=== PATIENT | female | born 1980 | race Caucasian/White ===

== ENCOUNTER → 2018-04-27 | Outpatient (CLI) | payer MEDICAID | END | disposition home or self-care (01) | LOC: LABWHC1 11:45 | PROVIDERS: ATTEND Otolaryngology | DX: J30.89 Other allergic rhinitis (principal) | CPT/HCPCS: 36415 ==

== ENCOUNTER → 2018-06-02 | Outpatient (CLI) | payer MEDICAID ==
--- NOTE | 2018-06-02 08:27 | MR ---
EXAMINATION TYPE: MR elbow RT wo con DATE OF EXAM: 06/02/2018 COMPARISON: NONE HISTORY: 38-year-old female Pain in right elbow, lateral epicondylitis TECHNIQUE: Multiplanar, multisequence images of the right elbow were obtained without IV contrast. FINDINGS: Distal biceps tendon is intact. The common extensor tendon origin is heterogeneous with a proximal intrasubstance tear measuring 5 x 4 x 5 mm and a second slightly more distal intrasubstance tear measuring 5 mm. No retracted tear is s een. The underlying lateral collateral ligament is intact. The ulnar collateral ligament is intact. The common flexor origin pronator mass is intact. The distal triceps tendon is intact. The ulnar nerve has a normal appearance within the cubital tunnel. The brachial artery and vein and adjacent median nerve are satisfactory. No focal cartilage defect. Prominent pseudodefect along the posterior capitellum. No bone marrow edema or hypertrophied synovium. Small joint effusion likely within physiologic range. The surrounding subcutaneous soft tissues are unremarkable. IMPRESSION: Moderate to severe common extensor tendinosis with 2 prominent intrasubstance tears measuring 5 mm ea ch. No retracted tear. The underlying LCL appears intact.
== END | disposition home or self-care (01) ==
LOC: RADMRIMAIN 06:38
PROVIDERS: ATTEND Orthopaedic Surgery
DX: S56.512A Strain of other extensor muscle, fascia and tendon at forearm level, left arm, initial encounter (principal)

== ENCOUNTER → 2019-09-01 | Outpatient (CLI) | payer MEDICAID ==
--- NOTE | 2019-09-01 11:10 | MM ---
Reason for exam: screening (asymptomatic). Baseline mammogram. History: Taking hormonal contraceptives beginning at age 20. Physical Findings: Nurse did not find any significant physical abnormalities on exam. MG 3D Diag Mammo W/Cad GAVIN Bilateral CC and MLO view(s) were taken. The breast tissue is heterogeneously dense. This may lower the sensitivity of mammography. No suspicious abnormality. These results were verbally communicated with the patient and result sheet given to the patient on 09/01/19. ASSESSMENT: Negative, BI-RAD 1 RECOMMENDATION: Routine screening mammogram of both breasts in 1 year.
== END | disposition home or self-care (01) ==
LOC: RADMAMWWP 09:33
PROVIDERS: ATTEND Obstetrics & Gynecology
DX: N64.4 Mastodynia (principal)
CPT/HCPCS: 77062; 77066

== ENCOUNTER → 2019-09-21 | Outpatient (CLI) | payer MEDICAID ==
[2019-09-21 16:43] LABS: HCG,Quantitative Serum <2.0 mIU/mL
== END | disposition home or self-care (01) ==
LOC: LABWHC1 12:08
PROVIDERS: ATTEND Obstetrics & Gynecology
DX: Z13.29 Encounter for screening for other suspected endocrine disorder (principal); N39.0 Urinary tract infection, site not specified; N93.8 Other specified abnormal uterine and vaginal bleeding; R82.90 Unspecified abnormal findings in urine; R35.0 Frequency of micturition
CPT/HCPCS: 36415; 84439; 84443; 84480; 84702

== ENCOUNTER → 2019-09-29 | Outpatient (CLI) | payer MEDICAID ==
--- NOTE | 2019-09-29 14:02 | US ---
EXAMINATION TYPE: US transvaginal DATE OF EXAM: 09/29/2019 COMPARISON: US 07/02/2012 CLINICAL HISTORY: N93.8 DUB. TECHNIQUE: Transvaginal sonographic images of the pelvis were acquired. Date of LMP: Unsure EXAM MEASUREMENTS: Uterus: 7.9 x 3.9 x 4.0 cm Endometrial Stripe: 0.5 cm Right Ovary: 2.2 x 1.5 x 2.7 cm Left Ovary: 2.4 x 1.7 x 2.2 cm 1. Uterus: Anteverted. Nabothian cysts visualized. Heterogeneous. Multiple hypoechoic areas visual ized, largest measuring 0.8 x 0.9 x 0.9 cm, possible fibroids 2. Endometrium: wnl 3. Right Ovary: Multiple follicles visualized, the most dominant follicle measuring 1.4 x 0.8 x 1.1 cm 4. Left Ovary: wnl 5. Bilateral Adnexa: wnl 6. Posterior cul-de-sac: wnl IMPRESSION: 1. Heterogenous uterus with multiple probable leiomyomas the largest and most circumscribed in the an terior mid body of the uterus appearing intramural. 2. No abnormal endometrial thickening. 3. Follicular changes of the right ovary, likely physiologic.
== END | disposition home or self-care (01) ==
LOC: RADUSWWP 13:19
PROVIDERS: ATTEND Obstetrics & Gynecology
DX: N93.8 Other specified abnormal uterine and vaginal bleeding (principal)
CPT/HCPCS: 76830

== ENCOUNTER → 2019-11-15 | Outpatient (CLI) | payer OTHER ==
--- NOTE | 2019-11-15 11:17 | XR ---
EXAMINATION TYPE: XR Hip Complete LT DATE OF EXAM: 11/15/2019 COMPARISON: None HISTORY: S 39.012A, pain TECHNIQUE: 2 view left hip FINDINGS: Femoral head articulates with the acetabulum. Joint spaces preserved. No acute fracture or dislocation is evident. There is an ill-defined area of increased sclerosis along the lateral proximal metaphysis. Bone scan is recommended for additional evaluation IMPRESSION: 1. No acute fractures. 2. Ill-defined area of sclerosis along the lateral metaphysis proximal left femur. Bone scan is recom mended for additional evaluation.
--- NOTE | 2019-11-15 11:21 | XR ---
EXAMINATION TYPE: XR lumbar spine 2 or 3V DATE OF EXAM: 11/15/2019 COMPARISON: None HISTORY: Low back pain TECHNIQUE: Three-view lumbar spine FINDINGS: There 5 lumbar-type vertebral bodies. Pedicles are intact. Some mild disc space narrowing i s present L4-5. Vertebral body heights are preserved. There is attempted sacralization of L5 on the l eft. IMPRESSION: 1. Degenerative disc change L4-5.
== END | disposition home or self-care (01) ==
LOC: RADXRMAIN 10:42
PROVIDERS: ATTEND Emergency Medicine
DX: M47.816 Spondylosis without myelopathy or radiculopathy, lumbar region (principal); M89.8X5 Other specified disorders of bone, thigh
CPT/HCPCS: 72100; 73502

== ENCOUNTER → 2020-02-09 | Outpatient (CLI) | payer MEDICAID ==
--- NOTE | 2020-02-09 11:36 | MR ---
MR pelvis without contrast HISTORY: Left hip pain Multiplanar multisequence imaging through the pelvis with small [id number] images obtained to the left hip. Correlation to plain film 11/15/2019 There is increased signal along the acetabular labrum consistent with tear. Gluteus medius tendon zelda ws some increased signal near its insertion consistent with tendinosis or partial tear. There is no s izable hip joint effusion. Sclerotic focus seen on plain film shows low signal on T1 and T2-weighted sequences, no marrow edema suggestive of bone island. There is no inguinal adenopathy. The uterus shows fibroids. Cystic focus is associated with the left ovary measuring 16 mm. There is n o ascites. Sacroiliac joints show normal signal. Degenerative disc changes are noted in the lower lum bar spine. Urinary bladder is unremarkable. IMPRESSION: Labral tear is suspected. Probable tendinosis or strain, partial tear of the gluteus medi us tendon near its insertion. Fibroid uterus. Degenerative disc disease.
== END | disposition home or self-care (01) ==
LOC: RADMRIMAIN 09:32
PROVIDERS: ATTEND Orthopaedic Surgery
DX: M51.36 Other intervertebral disc degeneration, lumbar region (principal); D25.9 Leiomyoma of uterus, unspecified
CPT/HCPCS: 72195

== ENCOUNTER 2020-09-12 08:18 | Observation (INO) | payer MEDICAID ==
[2020-09-12] MEDS ORDERED: KETOROLAC 15 MG/ML 1 ML VIAL IVP STA ×2 (08:31→11:36)
[2020-09-12] MEDS ORDERED: ONDANSETRON 4 MG/2 ML VIAL IVP STA (08:32)
[2020-09-12] MEDS ORDERED: SODIUM CHLORIDE 0.9% 1,000 ML IV ONE (08:32)
[2020-09-12 08:53] LABS: Basophils # (A) 0.1 k/uL (0-0.2); Basophils % (A) 1 %; Eosinophils # (A) 0.3 k/uL (0-0.7); Eosinophils % (A) 3 %; HCT 42.2 % (34.0-46.0); HGB 14.4 gm/dL (11.4-16.0); Lymphocytes # (A) 2.9 k/uL (1.0-4.8); Lymphocytes % (A) 34 %; MCH 30.4 pg (25.0-35.0); MCHC 34.2 g/dL (31.0-37.0); MCV 89.1 fL (80.0-100.0); Mean Platelet Volume 7.7; Monocytes # (A) 0.4 k/uL (0-1.0); Monocytes % (A) 5 %; Neutrophils # (A) 4.8 k/uL (1.3-7.7); Neutrophils % (A) 56 %; Platelet Count 287 k/uL (150-450); RBC 4.74 m/uL (3.80-5.40); RDW 12.1 % (11.5-15.5); WBC 8.6 k/uL (3.8-10.6)
[2020-09-12 08:54] LABS: Appearance,Urine Clear (Clear); Bacteria,Urine Rare /hpf; Bilirubin,Urine Negative (Negative); Blood,Urine Moderate (Negative); Color,Urine Yellow; Glucose,Urine (UA) Negative (Negative); Ketones,Urine Negative (Negative); Leukocyte Esterase,Urine Small (Negative); Mucus,Urine Occasional /hpf; Nitrite,Urine Negative (Negative); Protein,Urine Trace (Negative); RBC,Urine 7 /hpf (0-5); Specific Gravity,Urine 1.026 (1.001-1.035); Squamous Epithelial Cell,Urine 3 /hpf (0-4); Urobilinogen,Urine <2.0 mg/dL (<2.0); WBC,Urine 2 /hpf (0-5)
[2020-09-12 09:02] LABS: ALT 16 U/L (4-34); AST 23 U/L (14-36); African American GFR (CKD) >90 (>60 ml/min/1.73 sqM); Albumin 4.5 g/dL (3.5-5.0); Alkaline Phosphatase 62 U/L (38-126); Anion Gap 8 mmol/L; Blood Urea Nitrogen 18 mg/dL (7-17); Calcium 10.3 mg/dL (8.4-10.2); Carbon Dioxide 26 mmol/L (22-30); Chloride 105 mmol/L (98-107); Glucose 116 mg/dL (74-99); Non-African American GFR(CKD) 86 (>60 ml/min/1.73 sqM); Potassium 4.1 mmol/L (3.5-5.1); Sodium 139 mmol/L (137-145); Total Bilirubin 0.6 mg/dL (0.2-1.3); Total Protein 7.6 g/dL (6.3-8.2)
--- NOTE | 2020-09-12 09:14 | ED ---
Female Urogenital HPI - General Chief complaint: Urogenital Stated complaint: ABD pain Time Seen by Provider: 09/12/20 08:27 Source: patient Mode of arrival: ambulatory Limitations: no limitations - History of Present Illness Initial comments: 40yo female with history of kidney stones presenting for right flank pain that is radiating toward right side of abdomen/groin. pt states this morning she developed sharp pain in the right mid back that began radiating down side of abdomen. pt sates that it was so severe it caused nausea/vomiting. pt denies fev ers, admits to dysuria last week and was placed on nitrofurtoin. patient denies chest pain, upper abdominal pain. Denies vaginal bleeding, . - Related Data Home Medications Medication Instructions Recorded Confirmed Albuterol Sulfate [Albuterol 2 puff INHALATION RT-Q6H PRN 09/12/20 09/12/20 Sulfate Hfa] Fluticasone/Salmeterol [Advair 1 puff INHALATION RT-BID PRN 09/12/20 09/12/20 250-50 Diskus] Ibuprofen [Motrin Ib] 400 - 800 mg PO Q8H PRN 09/12/20 09/12/20 Yadira Fe 1 tab PO DAILY 09/12/20 09/12/20 Previous Rx's Medication Instructions Recorded Ketorolac [Toradol] 10 mg PO Q8HR PRN 3 Days #9 tab 09/12/20 Ondansetron Odt [Zofran Odt] 4 mg PO Q8HR PRN 4 Days #12 tab 09/12/20 Allergies Allergy/AdvReac Type Severity Reaction Status Date / Time cephalexin monohydrate Allergy Rash/Hives Verified 09/12/20 09:02 [From Keflex] tree nut Allergy Swelling Verified 09/12/20 09:02 Review of Systems ROS Statement: Those systems with pertinent positive or pertinent negative responses have been documented in the HPI. ROS Other: All systems not noted in ROS Statement are negative. Past Medical History Past Medical History: Asthma, No Reported History, Skin Disorder, Thyroid Disorder Additional Past Medical History / Comment(s): exema, kidney stones History of Any Multi-Drug Resistant Organisms: None Reported Past Surgical History: Orthopedic Surgery Additional Past Surgical History / Comment(s): D & C Past Anesthesia/Blood Transfusion Reactions: Postoperative Nausea & Vomiting (PONV) Past Psychological History: No Psychological Hx Reported Smoking Status: Never smoker Past Alcohol Use History: Occasional Past Drug Use History: None Reported - Past Family History Mother Family Medical History: No Reported History General Exam - General Exam Comments Initial Comments: General: The patient is awake and alert, appears very uncomfortable. Eye: +3 mm pupils are equal, round and reactive to light, extra-ocular movements are intact. No nystagmus. There is normal conjunctiva bilaterally. No signs of icterus. Ears, nose, mouth and throat: There are moist mucous membranes and no oral lesions. Neck: The neck is supple, there is no tenderness or JVD. Cardiovascular: There is a regular rate and rhythm. No murmur, rub or gallop is appreciated. Respiratory: Lungs are clear to auscultation, respirations are non-labored, breath sounds are equal. No wheezes, stridor, rales, or rhonchi. Gastrointestinal: Soft, non-distended, non-tender abdomen without masses or organomegaly noted. There is no rebound or guarding present Musculoskeletal: Normal ROM, no tenderness. Strength 5/5. Sensation intact. Radial pulses equal bilaterally 2+. Neurological: A&O x 3. CN II-XII intact grossly, There are no obvious motor or sensory deficits. Coordination appears grossly intact. Speech is normal. Skin: Skin is warm and dry and no rashes or lesions are noted. Psychiatric: Cooperative, appropriate mood & affect, normal judgment. Limitations: no limitations Course Vital Signs 09/12/20 09/12/20 09/12/20 08:22 09:50 10:50 Temperature 97.8 F Pulse Rate 78 69 67 Respiratory 18 18 18 Rate Blood Pressure 131/87 135/78 115/74 O2 Sat by Pulse 100 98 98 Oximetry Medical Decision Making - Medical Decision Making labs stable. hematuria. CT right sided stone 3mm. mild-moderate hydronephrosis. no fevers. pt symptoms remain present rhoughout visit despite treatment. pt will be admitted for pain/nausea management. pt agreeable to admission. Dr. Daugherty accepted reecommended tamulosin. Dr. Stinson agreeable to care plan and admission. - Lab Data Result diagrams: 09/12/20 08:31 09/12/20 08:31 Lab Results 12/30/20 12/30/20 12/30/20 Range/Units 08:31 08:31 08:31 WBC 8.6 (3.8-10.6) k/uL RBC 4.74 (3.80-5.40) m/uL Hgb 14.4 (11.4-16.0) gm/dL Hct 42.2 (34.0-46.0) % MCV 89.1 (80.0-100.0) fL MCH 30.4 (25.0-35.0) pg MCHC 34.2 (31.0-37.0) g/dL RDW 12.1 (11.5-15.5) % Plt Count 287 (150-450) k/uL MPV 7.7 Neutrophils % 56 % Lymphocytes % 34 % Monocytes % 5 % Eosinophils % 3 % Basophils % 1 % Neutrophils # 4.8 (1.3-7.7) k/uL Lymphocytes # 2.9 (1.0-4.8) k/uL Monocytes # 0.4 (0-1.0) k/uL Eosinophils # 0.3 (0-0.7) k/uL Basophils # 0.1 (0-0.2) k/uL Sodium 139 (137-145) mmol/L Potassium 4.1 (3.5-5.1) mmol/L Chloride 105 (98-107) mmol/L Carbon Dioxide 26 (22-30) mmol/L Anion Gap 8 mmol/L BUN 18 H (7-17) mg/dL Creatinine 0.85 (0.52-1.04) mg/dL Est GFR (CKD-EPI)AfAm >90 (>60 ml/min/1.73 sqM) Est GFR (CKD-EPI)NonAf 86 (>60 ml/min/1.73 sqM) Glucose 116 H (74-99) mg/dL Calcium 10.3 H (8.4-10.2) mg/dL Total Bilirubin 0.6 (0.2-1.3) mg/dL AST 23 (14-36) U/L ALT 16 (4-34) U/L Alkaline Phosphatase 62 (38-126) U/L Total Protein 7.6 (6.3-8.2) g/dL Albumin 4.5 (3.5-5.0) g/dL Urine Color Yellow Urine Appearance Clear (Clear) Urine pH 6.0 (5.0-8.0) Ur Specific [place] 1.026 (1.001-1.035) Urine Protein Trace H (Negative) Urine Glucose (UA) Negative (Negative) Urine Ketones Negative (Negative) Urine Blood Moderate H (Negative) Urine Nitrite Negative (Negative) Urine Bilirubin Negative (Negative) Urine Urobilinogen <2.0 (<2.0) mg/dL Ur Leukocyte Esterase Small H (Negative) Urine RBC 7 H (0-5) /hpf Urine WBC 2 (0-5) /hpf Ur Squamous Epith Cells 3 (0-4) /hpf Urine Bacteria Rare H (None) /hpf Urine Mucus Occasional H (None) /hpf Urine HCG, Qual (Not Detectd) 09/12/20 Range/Units 08:31 WBC (3.8-10.6) k/uL RBC (3.80-5.40) m/uL Hgb (11.4-16.0) gm/dL Hct (34.0-46.0) % MCV (80.0-100.0) fL MCH (25.0-35.0) pg MCHC (31.0-37.0) g/dL RDW (11.5-15.5) % Plt Count (150-450) k/uL MPV Neutrophils % % Lymphocytes % % Monocytes % % Eosinophils % % Basophils % % Neutrophils # (1.3-7.7) k/uL Lymphocytes # (1.0-4.8) k/uL Monocytes # (0-1.0) k/uL Eosinophils # (0-0.7) k/uL Basophils # (0-0.2) k/uL Sodium (137-145) mmol/L Potassium (3.5-5.1) mmol/L Chloride (98-107) mmol/L Carbon Dioxide (22-30) mmol/L Anion Gap mmol/L BUN (7-17) mg/dL Creatinine (0.52-1.04) mg/dL Est GFR (CKD-EPI)AfAm (>60 ml/min/1.73 sqM) Est GFR (CKD-EPI)NonAf (>60 ml/min/1.73 sqM) Glucose (74-99) mg/dL Calcium (8.4-10.2) mg/dL Total Bilirubin (0.2-1.3) mg/dL AST (14-36) U/L ALT (4-34) U/L Alkaline Phosphatase (38-126) U/L Total Protein (6.3-8.2) g/dL Albumin (3.5-5.0) g/dL Urine Color Urine Appearance (Clear) Urine pH (5.0-8.0) Ur Specific [place] (1.001-1.035) Urine Protein (Negative) Urine Glucose (UA) (Negative) Urine Ketones (Negative) Urine Blood (Negative) Urine Nitrite (Negative) Urine Bilirubin (Negative) Urine Urobilinogen (<2.0) mg/dL Ur Leukocyte Esterase (Negative) Urine RBC (0-5) /hpf Urine WBC (0-5) /hpf Ur Squamous Epith Cells (0-4) /hpf Urine Bacteria (None) /hpf Urine Mucus (None) /hpf Urine HCG, Qual Not Detected (Not Detectd) Disposition Clinical Impression: Kidney stone, Urolithiasis, Right flank pain, Nausea and vomiting Disposition: HOME SELF-CARE Condition: Good Instructions (If sedation given, give patient instructions): Kidney Stones (ED) Additional Instructions: Please use medication as discussed. Please follow-up with family doctor in the next 2 days, as well as urology in next week. return for fevers, uncontrolled pain or uncontrolled vomiting. Please return to emergency room if the symptoms increase or worsen or for any other concerns. Prescriptions: Ketorolac [Toradol] 10 mg PO Q8HR PRN 3 Days #9 tab PRN Reason: Pain Ondansetron Odt [Zofran Odt] 4 mg PO Q8HR PRN 4 Days #12 tab PRN Reason: Nausea Is patient prescribed a controlled substance at d/c from ED?: No Referrals: Gamal Box DO [Primary Care Provider] - 1-2 days Fred Daugherty MD [STAFF PHYSICIAN] - 1-2 days Time of Disposition: 11:22
--- NOTE | 2020-09-12 09:34 | CT ---
EXAMINATION TYPE: CT abdomen pelvis wo con DATE OF EXAM: 09/12/2020 COMPARISON: None INDICATION: Right flank pain DLP: 859.2 mGycm, Automated exposure control for dose reduction was used. CONTRAST: 0 mL of Isovue 300. Study performed without Oral Contrast TECHNIQUE: Axial images were obtained from above the diaphragm to the pubic rami in the axial plane a t 5 mm thick sections. Reconstructed images are reviewed on the computer in the coronal plane. FINDINGS: Limited CT sections are obtained the lung bases. The lung bases are clear. CT ABDOMEN: Liver: Normal Spleen: Normal Pancreas: Normal Adrenal glands: The adrenal glands are normal. Gallbladder: Normal Kidneys: No masses are evident. No hydronephrosis is present. No cysts are present. There is a 0.3 cm distal right ureteral stone with moderate right hydronephrosis and hydroureter. This is just abov e the ureterovesical junction. Aorta: Normal Inferior vena cava: Normal. CT PELVIS: Loops of bowel within the abdomen and pelvis are normal. The study is without oral contrast limit ing bowel evaluation. Appendix: Normal as visualized. Urinary bladder: Decompressed with limited evaluation Genitourinary structures: Uterus and adnexa appear within normal limits. Osseous structures: No suspicious lytic or sclerotic lesions. IMPRESSIONS: 1. 0.3 cm distal right ureteral stone with moderate right hydronephrosis and hydroureter.
[2020-09-12] MEDS ORDERED: METOCLOPRAMIDE 5 MG/ML 2 ML VIAL IVP STA (09:49)
[2020-09-12] MEDS ORDERED: HYDROmorphone 0.5 MG/0.5 ML SYRINGE IVP STA ×2 (09:49→11:36)
[2020-09-12] MEDS: ONDANSETRON 4 MG/2 ML VIAL IVP STA (11:59)
[2020-09-12] MEDS ORDERED: NALOXONE 0.4 MG/ML 1 ML VIAL IV PRN (12:01)
[2020-09-12] MEDS ORDERED: TAMSULOSIN 0.4 MG CAP.ER.24H PO STA (12:02)
[2020-09-12] MEDS: SODIUM CHLORIDE 0.9% 1,000 ML IV SCH ×2 (12:43→20:38)
[2020-09-12] MEDS: HYDROmorphone 0.5 MG/0.5 ML SYRINGE IVP PRN ×3 (15:50→23:14)
[2020-09-12] MEDS: ONDANSETRON 4 MG/2 ML VIAL IVP PRN (18:29)
[2020-09-12] MEDS: KETOROLAC 15 MG/ML 1 ML VIAL IVP PRN (18:30)
--- NOTE | 2020-09-12 22:24 | P.GSHP ---
History of Present Illness H&P Date: 09/12/20 Chief Complaint: Right renal colic The patient is a 40-year-old white female with one prior episode of urolithiasis, a calculus she past 10 years ago. For the past week, she has experienced urinary symptoms of dysuria and urgency. She presumed she had a UTI, and was treated with Macrobid. Her symptoms improved. However, she has now developed severe right flank pain, associated with nausea and vomiting. She presented to the emergency room. A computed tomography scan showed evidence of right hydroureteronephrosis due to a 3 mm calculus just proximal to the ureterovesical junction. - Constitutional Constitutional: Denies chills, Denies fever - Gastrointestinal Gastrointestinal: Reports nausea, Reports vomiting - Genitourinary (Female) Genitourinary: Reports dysuria, Reports flank pain, Reports kidney stones, Denies hematuria Past Medical History Past Medical History: Asthma, Skin Disorder, Thyroid Disorder Additional Past Medical History / Comment(s): eczema, kidney stones History of Any Multi-Drug Resistant Organisms: None Reported Past Surgical History: Orthopedic Surgery Additional Past Surgical History / Comment(s): D & C. Past Anesthesia/Blood Transfusion Reactions: Postoperative Nausea & Vomiting (PONV) Past Psychological History: No Psychological Hx Reported Smoking Status: Never smoker Past Alcohol Use History: Occasional Past Drug Use History: None Reported - Past Family History Father Family Medical History: Coronary Artery Disease (CAD) Additional Family Medical History / Comment(s): kidney stones, pace maker. Mother Family Medical History: No Reported History Additional Family Medical History / Comment(s): UTIs. Medications and Allergies Home Medications Medication Instructions Recorded Confirmed Type Albuterol Sulfate [Albuterol 2 puff INHALATION RT-Q6H PRN 09/12/20 09/12/20 History Sulfate Hfa] Fluticasone/Salmeterol [Advair 1 puff INHALATION RT-BID PRN 09/12/20 09/12/20 History 250-50 Diskus] Ibuprofen [Motrin Ib] 400 - 800 mg PO Q8H PRN 09/12/20 09/12/20 History Ketorolac [Toradol] 10 mg PO Q8HR PRN 3 Days #9 tab 09/12/20 Rx Yadira Fe 1 tab PO DAILY 09/12/20 09/12/20 History Ondansetron Odt [Zofran Odt] 4 mg PO Q8HR PRN 4 Days #12 tab 09/12/20 Rx Allergies Allergy/AdvReac Type Severity Reaction Status Date / Time cephalexin monohydrate Allergy Rash/Hives Verified 09/12/20 09:02 [From Keflex] cinnamon Allergy Wheezing Verified 09/12/20 17:33 tree nut Allergy Swelling Verified 09/12/20 09:02 Surgical - Exam Vital Signs Temp Pulse Resp BP Pulse Ox 97.8 F 78 18 131/87 100 09/12/20 08:22 09/12/20 08:22 09/12/20 08:22 09/12/20 08:22 09/12/20 08:22 - General well developed, well nourished, no distress - Neck no masses, trachea midline - Respiratory normal respiratory effort - Abdomen Abdomen: soft, tender (Mild right-sided tenderness), no guarding, no rigid, no rebound - Psychiatric oriented to time, oriented to person, oriented to place, speech is normal, memor y intact Results - Labs 09/12/20 08:31 09/12/20 08:31 Abnormal Lab Results - Last 24 Hours (Table) 09/12/20 09/12/20 Range/Units 08:31 08:31 BUN 18 H (7-17) mg/dL Glucose 116 H (74-99) mg/dL Calcium 10.3 H (8.4-10.2) mg/dL Urine Protein Trace H (Negative) Urine Blood Moderate H (Negative) Ur Leukocyte Esterase Small H (Negative) Urine RBC 7 H (0-5) /hpf Urine Bacteria Rare H (None) /hpf Urine Mucus Occasional H (None) /hpf Diabetes panel 09/12/20 Range/Units 08:31 Sodium 139 (137-145) mmol/L Potassium 4.1 (3.5-5.1) mmol/L Chloride 105 (98-107) mmol/L Carbon Dioxide 26 (22-30) mmol/L BUN 18 H (7-17) mg/dL Creatinine 0.85 (0.52-1.04) mg/dL Glucose 116 H (74-99) mg/dL Calcium 10.3 H (8.4-10.2) mg/dL AST 23 (14-36) U/L ALT 16 (4-34) U/L Alkaline Phosphatase 62 (38-126) U/L Total Protein 7.6 (6.3-8.2) g/dL Albumin 4.5 (3.5-5.0) g/dL Calcium panel 09/12/20 Range/Units 08:31 Calcium 10.3 H (8.4-10.2) mg/dL Albumin 4.5 (3.5-5.0) g/dL Pituitary panel 09/12/20 Range/Units 08:31 Sodium 139 (137-145) mmol/L Potassium 4.1 (3.5-5.1) mmol/L Chloride 105 (98-107) mmol/L Carbon Dioxide 26 (22-30) mmol/L BUN 18 H (7-17) mg/dL Creatinine 0.85 (0.52-1.04) mg/dL Glucose 116 H (74-99) mg/dL Calcium 10.3 H (8.4-10.2) mg/dL Adrenal panel 09/12/20 Range/Units 08:31 Sodium 139 (137-145) mmol/L Potassium 4.1 (3.5-5.1) mmol/L Chloride 105 (98-107) mmol/L Carbon Dioxide 26 (22-30) mmol/L BUN 18 H (7-17) mg/dL Creatinine 0.85 (0.52-1.04) mg/dL Glucose 116 H (74-99) mg/dL Calcium 10.3 H (8.4-10.2) mg/dL Total Bilirubin 0.6 (0.2-1.3) mg/dL AST 23 (14-36) U/L ALT 16 (4-34) U/L Alkaline Phosphatase 62 (38-126) U/L Total Protein 7.6 (6.3-8.2) g/dL Albumin 4.5 (3.5-5.0) g/dL - Imaging CT scan - abdomen: report reviewed, image reviewed Assessment and Plan (1) Calculus of ureter Current Visit: Yes Status: Acute Code(s): N20.1 - CALCULUS OF URETER SNOMED Code(s): 36551204 (2) Hydronephrosis with renal and ureteral calculous obstruction Current Visit: Yes Status: Acute Code(s): N13.2 - HYDRONEPHROSIS WITH RENAL AND URETERAL CALCULOUS OBSTRUCTION SNOMED Code(s): 784528840 Plan: I had a lengthy discussion with the patient regarding her right distal ureteral calculus. I explained that the calculus has approximately a 90% likelihood of passing. However, it cannot be determined when this might occur. She was offered the option of medical expulsion therapy, but is concerned about being di scharged home in requiring readmission. She has ultimately elected to undergo ureteroscopic removal of the calculus. The procedure was reviewed in detail, as well as the anticipated postoperative course. She was made aware of potential risks, which include anesthesia, infection, inability to successfully remove the calculus, and ureteral injury. She is aware of the possible need for a ureteral stent postoperatively. I am hopeful that this can be performed tomorrow, and if so she will likely be discharged home postoperatively. Time with Patient: Greater than 30
[2020-09-12] MEDS: METOCLOPRAMIDE 5 MG/ML 2 ML VIAL IVP PRN (23:14)
[2020-09-13] MEDS: ONDANSETRON 4 MG/2 ML VIAL IVP PRN ×3 (00:12→18:13)
[2020-09-13] MEDS: KETOROLAC 15 MG/ML 1 ML VIAL IVP PRN ×3 (00:13→15:16)
[2020-09-13] MEDS: HYDROmorphone 0.5 MG/0.5 ML SYRINGE IVP PRN ×3 (02:54→10:01)
[2020-09-13] MEDS: METOCLOPRAMIDE 5 MG/ML 2 ML VIAL IVP PRN ×2 (05:04→10:33)
[2020-09-13] MEDS: SODIUM CHLORIDE 0.9% 1,000 ML IV SCH (05:05)
--- NOTE | 2020-09-13 10:57 | XR ---
EXAMINATION TYPE: XR KUB DATE OF EXAM: 09/13/2020 COMPARISON: 02/08/2010 INDICATION: Ureteral calculus TECHNIQUE: Single view abdomen FINDINGS: There is a normal bowel gas pattern. Psoas margins are normal. No organomegaly is present. Suspicious calcifications is not identified. There is attempted sacralization of L5 on the left. IMPRESSION: 1. Unremarkable Abdomen
[2020-09-13] MEDS ORDERED: IV FLUID CONTINUATION 1,000 ML IV ONE (12:13)
[2020-09-13] MEDS ORDERED: MIDAZOLAM 2 MG/2 ML VIAL IV ONE (12:44)
[2020-09-13] MEDS: ONDANSETRON 4 MG/2 ML VIAL IVP STA (12:46)
[2020-09-13] MEDS ORDERED: DEXAMETHASONE SOD PHOSPHATE 4 MG/ML 1 ML VIAL IV ONE (12:46)
[2020-09-13] MEDS ORDERED: SCOPOLAMINE 1.5MG/72HR PATCH TRANSDERM ONE (12:46)
[2020-09-13] MEDS ORDERED: PROPOFOL 10 MG/ML 20 ML VIAL IV ONE (13:26)
[2020-09-13] MEDS ORDERED: LIDOCAINE 1% INJ 10MG/ML (20 ML MDV) ONE (13:26)
[2020-09-13] MEDS ORDERED: fentaNYL (PF) 50 MCG/ML 2 ML AMP ONE (13:26)
[2020-09-13] MEDS ORDERED: MIDAZOLAM 2 MG/2 ML VIAL ONE (13:26)
[2020-09-13] MEDS ORDERED: LACTATED RINGERS 1,000 ML IV ONE ×2 (13:27→14:33)
[2020-09-13] MEDS ORDERED: IOPAMIDOL-370 50ML BTL MISCELLANE ONE (13:55)
--- NOTE | 2020-09-13 15:06 | P.OP ---
Date of Procedure: 09/13/20 Preoperative Diagnosis: Right ureteral calculus Postoperative Diagnosis: Same Procedure(s) Performed: Cystoscopy, right retrograde pyelogram, right ureteroscopy with Holmium laser lithotripsy and stone basketing, right ureteral stent insertion Anesthesia: KRISTINAA Surgeon: Fred Daugherty Estimated Blood Loss (ml): 10 IV fluids (ml): 1,000 Pathology: other (Calculus fragments, sent for chemical analysis) Condition: stable Disposition: PACU Indications for Procedure: The patient is a 40-year-old white female admitted with severe right flank pain, associated with nausea and vomiting. A CT scan showed evidence of right hydroureteronephrosis due to a 3 mm calculus just proximal to the ureterovesical junction. She has elected to undergo ureteroscopic removal of the calculus and comes for this reason. Operative Findings: 3-4 mm right distal ureteral calculus, fragmented and removed completely. Description of Procedure: The patient was taken to the operating room and placed in the dorsolithotomy position, with legs supported in Sree stirrups. The external genitalia was prepped and draped sterilely. The 30 lens was used to introduce the 21-Macedonian Biggs cystoscopic sheath through the urethra and into the bladder under direct vision. The bladder was examined in its entirety. Both ureteral orifices were normal anatomic location and configuration, and clear urine effluxed from both. No tumors or foreign bodies were seen. The Biggs semirigid ureteroscope was advanced into the bladder, and the right ureteral orifice was cannulated. However, the ureteroscope could be advanced only 1-2 cm, at which point an area of narrowing was encountered. Contrast was injected, strongly suggesting the presence of a calculus proximal to this area of narrowing. A 15-Macedonian balloon dilating catheter was used to dilate the narrowed portion of the ureter, but again ureteroscopy could not be successfully performed. Therefore, balloon dilation was repeated using an 18-Macedonian balloon dilating catheter, and it was then possible to advance the ureteroscope up to the calculus, which measured 3-4 mm in size. The 200 micron Holmium laser probe was passed through the ureteroscope, and lithotripsy was performed. After fragmenting the calculus, the calculus fragments were removed using a 1.9-Macedonian nitinol basket. The guidewire was then passed through the ureteroscope and advanced up to the right renal pelvis. The ureteroscope was removed, and the Glidewire was backloaded into the cystoscope. The cystoscope was then passed into the bladder, and a 24 cm, 4.8-Macedonian double-J ureteral stent was placed over the wire. Proper stent positioning was verified fluoroscopically and endoscopically. The bladder was emptied and the cystoscope removed. The removed calculus fragments were saved and sent for chemical analysis. The patient tolerated the procedure well and was taken to the recovery room in stable condition. INDERJIT ROCKJerry Report: Procedure Acuity: Urgent Stone Size and Location: 3-4 mm, right distal ureter Ureteral Dilation: Balloon Dilation Ureteral Access Sheath Used: No Stone Sent for Analysis: Yes All Stones/Fragments Were Removed with a Basket: Yes Complications: No Preoperative Antibiotics Given: No Stent Placed: Yes If Stent Placed, Was String Left Attached: No If Stent Placed, When is it to be Removed: 2 weeks Discharge Medications: Toradol, Zofran
--- NOTE | 2020-09-13 15:20 | FL ---
Fluoroscopy INDICATION: Pain FINDINGS: Fluoroscopy time: 120 seconds. Images obtained: 3. IMPRESSIONS: 1. Documentation of fluoroscopy.
[2020-09-13 15:28] VITALS: RESP 18
[2020-09-13 15:53] VITALS: TEMP 98.1
[2020-09-13 17:58] VITALS: BP 128/72; PULSE 85
--- NOTE | 2020-09-14 10:50 | P.DS ---
Providers Date of admission: 09/12/20 12:02 Expected date of discharge: 09/13/20 Attending physician: Fred Daugherty Primary care physician: Gamal Box - Discharge Diagnosis(es) (1) Calculus of ureter Status: Acute (2) Hydronephrosis with renal and ureteral calculous obstruction Status: Acute Hospital Course: Upon admission, the patient was treated with IV hydration and parenteral analgesics. I had a lengthy discussion with her regarding the options of medical expulsion therapy versus ureteroscopic removal of the calculus. Because her symptoms were intractable, she elected to undergo ureteroscopic removal of the calculus. This was performed without complication, and she felt much better following the procedure. She was thus discharged home. Procedures: Cystoscopy, right ureteroscopy with Holmium laser lithotripsy and stone basketing, right ureteral stent insertion on 09/13/2020 Patient Condition at Discharge: Good Plan - Discharge Summary Discharge Rx Participant: Yes New Discharge Prescriptions: New Ketorolac [Toradol] 10 mg PO Q8HR PRN 3 Days #9 tab PRN Reason: Pain Ondansetron Odt [Zofran Odt] 4 mg PO Q8HR PRN 4 Days #12 tab PRN Reason: Nausea Ketorolac [Toradol] 10 mg PO Q6HR PRN #10 tab PRN Reason: Moderate To Severe Pain Ondansetron Odt [Zofran Odt] 4 mg PO Q8HR PRN #6 tab PRN Reason: Nausea And Vomiting No Action Albuterol Sulfate [Albuterol Sulfate Hfa] 2 puff INHALATION RT-Q6H PRN PRN Reason: Shortness Of Breath Ibuprofen [Motrin Ib] 400 - 800 mg PO Q8H PRN PRN Reason: Pain Yadira Fe 1 tab PO DAILY Fluticasone/Salmeterol [Advair 250-50 Diskus] 1 puff INHALATION RT-BID PRN PRN Reason: ASTHMA Discharge Medication List Albuterol Sulfate [Albuterol Sulfate Hfa] 2 puff INHALATION RT-Q6H PRN 09/12/20 [History] Fluticasone/Salmeterol [Advair 250-50 Diskus] 1 puff INHALATION RT-BID PRN 09/12/20 [History] Ibuprofen [Motrin Ib] 400 - 800 mg PO Q8H PRN 09/12/20 [History] Ketorolac [Toradol] 10 mg PO Q8HR PRN 3 Days #9 tab 09/12/20 [Rx] Yadira Fe 1 tab PO DAILY 09/12/20 [History] Ondansetron Odt [Zofran Odt] 4 mg PO Q8HR PRN 4 Days #12 tab 09/12/20 [Rx] Ketorolac [Toradol] 10 mg PO Q6HR PRN #10 tab 09/13/20 [Rx] Ondansetron Odt [Zofran Odt] 4 mg PO Q8HR PRN #6 tab 09/13/20 [Rx] Follow up Appointment(s)/Referral(s): Gamal Box DO [Primary Care Provider] - 1-2 days Fred Daugherty MD [STAFF PHYSICIAN] - 10 Days Patient Instructions/Handouts: *Surgery [facility] - (Anesthesia) Discharge Instructions Outpatient Surgery, Kidney Stones (ED), Lithotripsy (DC) Activity/Diet/Wound Care/Special Instructions: Please use medication as discussed. Please follow-up with family doctor in the next 2 days. Gross hematuria, urinary frequency, and urinary urgency are expected. Return for fevers, uncontrolled pain, or uncontrolled vomiting. Please return to emergency room if the symptoms increase or worsen or for any other concerns. Follow up with Dr. Daugehrty September 24 or September 25 for office cystoscopy with stent removal (call [phone] to schedule appointment). Discharge Disposition: HOME SELF-CARE
== END 2020-09-13 18:45 | disposition home or self-care (01) ==
LOC: EC 08:18 → 6PED 12:02
PROVIDERS: ADMIT Urology; ATTEND Urology
DX: N13.2 Hydronephrosis with renal and ureteral calculous obstruction (principal); J45.909 Unspecified asthma, uncomplicated; E07.9 Disorder of thyroid, unspecified; L30.9 Dermatitis, unspecified; Z87.442 Personal history of urinary calculi; Z79.899 Other long term (current) drug therapy; Z79.51 Long term (current) use of inhaled steroids; Z79.3 Long term (current) use of hormonal contraceptives; Z88.1 Allergy status to other antibiotic agents; Z91.02 Food additives allergy status; Z91.018 Allergy to other foods; Z98.890 Other specified postprocedural states; Z91.89 Other specified personal risk factors, not elsewhere classified; Z82.49 Family history of ischemic heart disease and other diseases of the circulatory system; Z84.1 Family history of disorders of kidney and ureter
CPT/HCPCS: 96376 ×2; 96361; 96374; 96375; 99285; 36415; 80053; 85025; 81001; 81025; 82365; 74420; 74018; 74176; 52356; G0378 ×2; C2625; C1758; C1769; J2250; J1100; J2765 ×2; J2405 ×2; J2001; J3010; J1885 ×2; J2704; J1170 ×2; Q9967

== ENCOUNTER → 2020-10-15 | Outpatient (CLI) | payer MEDICAID ==
[2020-10-15 12:20] LABS: Appearance,Urine Clear (Clear); Bilirubin,Urine Negative (Negative); Blood,Urine Trace (Negative); Color,Urine Light Yellow; Glucose,Urine (UA) Negative (Negative); Ketones,Urine Negative (Negative); Leukocyte Esterase,Urine Negative (Negative); Mucus,Urine Rare /hpf; Nitrite,Urine Negative (Negative); PH, Urine 6.5 (5.0-8.0); Protein,Urine Negative (Negative); RBC,Urine 2 /hpf (0-5); Squamous Epithelial Cell,Urine <1 /hpf (0-4); Urobilinogen,Urine <2.0 mg/dL (<2.0); WBC,Urine <1 /hpf (0-5)
== END | disposition home or self-care (01) ==
LOC: LABMAIN 10:17
PROVIDERS: ATTEND Physician Assistant Medical
DX: R31.9 Hematuria, unspecified (principal)
CPT/HCPCS: 81001

== ENCOUNTER → 2020-10-26 | Outpatient (CLI) | payer MEDICAID ==
--- NOTE | 2020-10-26 14:00 | US ---
EXAMINATION TYPE: US kidneys/renal and bladder DATE OF EXAM: 10/26/2020 COMPARISON: NONE CLINICAL HISTORY: N20.0 Calculus of kidney. EXAM MEASUREMENTS: Right Kidney: 12.6 x 4.6 x 5.5 cm Left Kidney: 12.1 x 5.1 x 6.0 cm Right Kidney: No hydronephrosis or masses seen Left Kidney: No hydronephrosis or masses seen Bladder: wnl Bilateral Jets seen: Yes There is no evidence for hydronephrosis at this point in time. No nephrolithiasis is seen. No bruno s are identified. The urinary bladder is anechoic. Bilateral ureteral jets are seen. IMPRESSION: No distinct abnormality seen.
== END | disposition home or self-care (01) ==
LOC: RADUSWWP 13:33
PROVIDERS: ATTEND Urology
DX: N20.0 Calculus of kidney (principal); N13.30 Unspecified hydronephrosis
CPT/HCPCS: 76770

== ENCOUNTER → 2020-12-29 | Outpatient (CLI) | payer MEDICAID ==
[2020-12-29 11:35] LABS: T4, Free (Free Thyroxine) 0.9 ng/dL (0.80-1.80)
== END | disposition home or self-care (01) ==
LOC: LABMAIN 06:41
PROVIDERS: ATTEND Family Medicine
DX: U07.1 COVID-19 (principal); E03.9 Hypothyroidism, unspecified
CPT/HCPCS: 36415; 84439; 84443; 86769

== ENCOUNTER 2021-05-04 16:42 | Emergency (ER) | payer MEDICAID ==
[2021-05-04] MEDS ORDERED: SODIUM CHLORIDE 0.9% 1,000 ML IV STA (17:12)
[2021-05-04] MEDS ORDERED: diphenhydrAMINE 50 MG/ML 1 ML VIAL IVP STA (17:12)
[2021-05-04] MEDS ORDERED: KETOROLAC 15 MG/ML 1 ML VIAL IVP STA (17:12)
--- NOTE | 2021-05-04 17:16 | ED ---
General Adult HPI - General Chief complaint: Allergic Reaction Stated complaint: Med Reaction,Kidney Stone Source: patient, RN notes reviewed Limitations: no limitations - History of Present Illness Initial comments: 41-year-old white female, presents to the emergency room alert and oriented 4, with complaints of a generalized rash after starting Bactrim today. Patient states that her doctor called in a prescription for the antibiotic to treat a urinary tract infection. Patient states that she has left flank pain as well and has a history of kidney stones. She states that she has had sweats but did not check her temperature. She states that she felt lethargic yesterday she did take Benadryl prior to arrival. She denies any nausea or vomiting or difficulty breathing. -: days(s) (1) Location: left (Flank) Radiation: flank Severity scale (1-10): 4 Quality: other Consistency: constant (Ache) Improves with: none Associated Symptoms: rash (Started Bactrim took 1 dose now with a generalized rash) - Related Data Home Medications Medication Instructions Recorded Confirmed Albuterol Sulfate [Albuterol 2 puff INHALATION RT-Q6H PRN 09/12/20 09/12/20 Sulfate Hfa] Fluticasone/Salmeterol [Advair 1 puff INHALATION RT-BID PRN 09/12/20 09/12/20 250-50 Diskus] Ibuprofen [Motrin Ib] 400 - 800 mg PO Q8H PRN 09/12/20 09/12/20 Yadira Fe 1 tab PO DAILY 09/12/20 09/12/20 Previous Rx's Medication Instructions Recorded Ketorolac [Toradol] 10 mg PO Q8HR PRN 3 Days #9 tab 09/12/20 Ondansetron Odt [Zofran Odt] 4 mg PO Q8HR PRN 4 Days #12 tab 09/12/20 Ketorolac [Toradol] 10 mg PO Q6HR PRN #10 tab 09/13/20 Ondansetron Odt [Zofran Odt] 4 mg PO Q8HR PRN #6 tab 09/13/20 Allergies Allergy/AdvReac Type Severity Reaction Status Date / Time cephalexin monohydrate Allergy Rash/Hives Verified 05/04/21 16:45 [From Keflex] cinnamon Allergy Wheezing Verified 05/04/21 16:45 sulfamethoxazole Allergy Rash/Hives Verified 05/04/21 16:46 [From Bactrim] tree nut Allergy Swelling Verified 05/04/21 16:45 trimethoprim [From Bactrim] Allergy Rash/Hives Verified 05/04/21 16:46 Review of Systems ROS Statement: Those systems with pertinent positive or pertinent negative responses have been documented in the HPI. ROS Other: All systems not noted in ROS Statement are negative. Past Medical History Past Medical History: Asthma, Skin Disorder, Thyroid Disorder Additional Past Medical History / Comment(s): eczema, kidney stones History of Any Multi-Drug Resistant Organisms: None Reported Past Surgical History: Orthopedic Surgery Additional Past Surgical History / Comment(s): D & C. Past Anesthesia/Blood Transfusion Reactions: Postoperative Nausea & Vomiting (PONV) Past Psychological History: No Psychological Hx Reported Smoking Status: Never smoker Past Alcohol Use History: Occasional Past Drug Use History: None Reported - Past Family History Father Family Medical History: Coronary Artery Disease (CAD) Additional Family Medical History / Comment(s): kidney stones, pace maker. Mother Family Medical History: No Reported History Additional Family Medical History / Comment(s): UTIs. General Exam Limitations: no limitations General appearance: alert, in no apparent distress Head exam: Present: atraumatic, normocephalic, normal inspection Eye exam: Present: normal appearance, PERRL, EOMI. Absent: scleral icterus, conjunctival injection, periorbital swelling ENT exam: Present: normal exam, normal oropharynx, mucous membranes moist Neck exam: Present: normal inspection, full ROM. Absent: tenderness, meningismus, lymphadenopathy, thyromegaly Respiratory exam: Present: normal lung sounds bilaterally. Absent: respiratory distress, wheezes, rales, rhonchi, stridor, chest wall tenderness, accessory muscle use, decreased breath sounds Cardiovascular Exam: Present: normal rhythm, tachycardia, normal heart sounds. Absent: systolic murmur, diastolic murmur, rubs, gallop, clicks GI/Abdominal exam: Present: soft, normal bowel sounds. Absent: distended, tenderness, guarding, rebound, rigid Extremities exam: Present: normal inspection, full ROM, normal capillary refill. Absent: tenderness, pedal edema, joint swelling, calf tenderness Back exam: Present: normal inspection, full ROM, CVA tenderness (L), rash noted (Generalized maculopapular rash). Absent: CVA tenderness (R), muscle spasm, paraspinal tenderness, vertebral tenderness Neurological exam: Present: alert, oriented X3, CN II-XII intact Psychiatric exam: Present: normal affect, normal mood Skin exam: Present: warm, dry, intact, normal color, urticaria, other (Generalized macular papular rash). Absent: rash, cyanosis, diaphoretic, erythema, petechiae, pallor, mottled, abrasion Course Vital Signs 05/04/21 16:43 Temperature 98.5 F Pulse Rate 109 H Respiratory 20 Rate Blood Pressure 134/69 O2 Sat by Pulse 97 Oximetry Medical Decision Making - Medical Decision Making Ultrasound reveals no hydronephrosis. KUB shows possible small renal calculi 2 mm in the right renal. Patient is complaining of left flank pain. There are 27 RBCs in her urine with moderate amount of blood this may be evidence of a kidney stone that has passed. Patient states that she did take Flomax yesterday and directed to continue to take it until seen by urology. She'll be directed to stop taking her Bactrim as there is no evidence of urinary tract infection. She was instructed to continue Toradol for pain. Return if any worsening symptoms. Case discussed with Dr. Gil - Lab Data Result diagrams: 05/04/21 17:17 05/04/21 17:17 Lab Results 05/04/21 05/04/21 05/04/21 Range/Units 17:17 17:17 17:17 WBC 12.2 H (3.8-10.6) k/uL RBC 4.27 (3.80-5.40) m/uL Hgb 13.2 (11.4-16.0) gm/dL Hct 38.9 (34.0-46.0) % MCV 91.0 (80.0-100.0) fL MCH 31.0 (25.0-35.0) pg MCHC 34.0 (31.0-37.0) g/dL RDW 13.6 (11.5-15.5) % Plt Count 289 (150-450) k/uL MPV 8.2 Neutrophils % 72 % Lymphocytes % 22 % Monocytes % 3 % Eosinophils % 1 % Basophils % 1 % Neutrophils # 8.8 H (1.3-7.7) k/uL Lymphocytes # 2.7 (1.0-4.8) k/uL Monocytes # 0.4 (0-1.0) k/uL Eosinophils # 0.1 (0-0.7) k/uL Basophils # 0.1 (0-0.2) k/uL Sodium 137 (137-145) mmol/L Potassium 4.1 (3.5-5.1) mmol/L Chloride 107 (98-107) mmol/L Carbon Dioxide 21 L (22-30) mmol/L Anion Gap 9 mmol/L BUN 17 (7-17) mg/dL Creatinine 0.78 (0.52-1.04) mg/dL Est GFR (CKD-EPI)AfAm >90 (>60 ml/min/1.73 sqM) Est GFR (CKD-EPI)NonAf >90 (>60 ml/min/1.73 sqM) Glucose 117 H (74-99) mg/dL Plasma Lactic Acid Lawrence (0.7-2.0) mmol/L Calcium 9.4 (8.4-10.2) mg/dL Total Bilirubin 0.3 (0.2-1.3) mg/dL AST 26 (14-36) U/L ALT 16 (4-34) U/L Alkaline Phosphatase 50 (38-126) U/L Total Protein 6.9 (6.3-8.2) g/dL Albumin 4.1 (3.5-5.0) g/dL Urine Color Yellow Urine Appearance Clear (Clear) Urine pH 6.0 (5.0-8.0) Ur Specific [place] 1.036 H (1.001-1.035) Urine Protein 1+ H (Negative) Urine Glucose (UA) Negative (Negative) Urine Ketones Trace H (Negative) Urine Blood Moderate H (Negative) Urine Nitrite Negative (Negative) Urine Bilirubin Negative (Negative) Urine Urobilinogen <2.0 (<2.0) mg/dL Ur Leukocyte Esterase Negative (Negative) Urine RBC 27 H (0-5) /hpf Urine WBC 3 (0-5) /hpf Ur Squamous Epith Cells 1 (0-4) /hpf Urine Mucus Few H (None) /hpf Urine HCG, Qual (Not Detectd) 05/04/21 05/04/21 Range/Units 17:17 17:17 WBC (3.8-10.6) k/uL RBC (3.80-5.40) m/uL Hgb (11.4-16.0) gm/dL Hct (34.0-46.0) % MCV (80.0-100.0) fL MCH (25.0-35.0) pg MCHC (31.0-37.0) g/dL RDW (11.5-15.5) % Plt Count (150-450) k/uL MPV Neutrophils % % Lymphocytes % % Monocytes % % Eosinophils % % Basophils % % Neutrophils # (1.3-7.7) k/uL Lymphocytes # (1.0-4.8) k/uL Monocytes # (0-1.0) k/uL Eosinophils # (0-0.7) k/uL Basophils # (0-0.2) k/uL Sodium (137-145) mmol/L Potassium (3.5-5.1) mmol/L Chloride (98-107) mmol/L Carbon Dioxide (22-30) mmol/L Anion Gap mmol/L BUN (7-17) mg/dL Creatinine (0.52-1.04) mg/dL Est GFR (CKD-EPI)AfAm (>60 ml/min/1.73 sqM) Est GFR (CKD-EPI)NonAf (>60 ml/min/1.73 sqM) Glucose (74-99) mg/dL Plasma Lactic Acid Lawrence 0.9 (0.7-2.0) mmol/L Calcium (8.4-10.2) mg/dL Total Bilirubin (0.2-1.3) mg/dL AST (14-36) U/L ALT (4-34) U/L Alkaline Phosphatase (38-126) U/L Total Protein (6.3-8.2) g/dL Albumin (3.5-5.0) g/dL Urine Color Urine Appearance (Clear) Urine pH (5.0-8.0) Ur Specific [place] (1.001-1.035) Urine Protein (Negative) Urine Glucose (UA) (Negative) Urine Ketones (Negative) Urine Blood (Negative) Urine Nitrite (Negative) Urine Bilirubin (Negative) Urine Urobilinogen (<2.0) mg/dL Ur Leukocyte Esterase (Negative) Urine RBC (0-5) /hpf Urine WBC (0-5) /hpf Ur Squamous Epith Cells (0-4) /hpf Urine Mucus (None) /hpf Urine HCG, Qual Not Detected (Not Detectd) Disposition Clinical Impression: Kidney stone, Hematuria Disposition: HOME SELF-CARE Condition: Good Instructions (If sedation given, give patient instructions): Kidney Stones (ED) Additional Instructions: Stop taking the Bactrim. Follow-up with your primary care doctor next week. Return if any new or worsening symptoms including inability to urinate, increased pain or fevers. Is patient prescribed a controlled substance at d/c from ED?: No Referrals: Gamal Box DO [Primary Care Provider] - 1-2 days Time of Disposition: 19:41
[2021-05-04 18:00] LABS: Basophils # (A) 0.1 k/uL (0-0.2); Basophils % (A) 1 %; Eosinophils # (A) 0.1 k/uL (0-0.7); Eosinophils % (A) 1 %; HCT 38.9 % (34.0-46.0); HGB 13.2 gm/dL (11.4-16.0); Lymphocytes # (A) 2.7 k/uL (1.0-4.8); Lymphocytes % (A) 22 %; Mean Platelet Volume 8.2; Monocytes # (A) 0.4 k/uL (0-1.0); Monocytes % (A) 3 %; Neutrophils # (A) 8.8 k/uL (1.3-7.7); Neutrophils % (A) 72 %; Platelet Count 289 k/uL (150-450); RBC 4.27 m/uL (3.80-5.40); RDW 13.6 % (11.5-15.5); WBC 12.2 k/uL (3.8-10.6)
--- NOTE | 2021-05-04 18:08 | XR ---
EXAM: Abdomen radiograph. HISTORY: Pain and kidney stones. TECHNIQUE: Upright AP view. COMPARISON: 09/13/2020. FINDINGS: There are nondilated bowel loops with a nonobstructive pattern. No pneumoperitoneum. There is possibl e 2 mm right renal calculus. No acute osseous abnormality seen. IMPRESSION: Possible small renal calculus. Otherwise no acute process.
[2021-05-04 18:11] LABS: ALT 16 U/L (4-34); AST 26 U/L (14-36); African American GFR (CKD) >90 (>60 ml/min/1.73 sqM); Albumin 4.1 g/dL (3.5-5.0); Alkaline Phosphatase 50 U/L (38-126); Anion Gap 9 mmol/L; Blood Urea Nitrogen 17 mg/dL (7-17); Calcium 9.4 mg/dL (8.4-10.2); Carbon Dioxide 21 mmol/L (22-30); Chloride 107 mmol/L (98-107); Glucose 117 mg/dL (74-99); Non-African American GFR(CKD) >90 (>60 ml/min/1.73 sqM); Sodium 137 mmol/L (137-145); Total Bilirubin 0.3 mg/dL (0.2-1.3); Total Protein 6.9 g/dL (6.3-8.2)
[2021-05-04 18:15] LABS: Appearance,Urine Clear (Clear); Bilirubin,Urine Negative (Negative); Blood,Urine Moderate (Negative); Color,Urine Yellow; Glucose,Urine (UA) Negative (Negative); Ketones,Urine Trace (Negative); Leukocyte Esterase,Urine Negative (Negative); Mucus,Urine Few /hpf; Nitrite,Urine Negative (Negative); Protein,Urine 1+ (Negative); RBC,Urine 27 /hpf (0-5); Specific Gravity,Urine 1.036 (1.001-1.035); Squamous Epithelial Cell,Urine 1 /hpf (0-4); Urobilinogen,Urine <2.0 mg/dL (<2.0); WBC,Urine 3 /hpf (0-5)
[2021-05-04 18:20] LABS: Potassium 4.1 mmol/L (3.5-5.1)
--- NOTE | 2021-05-04 19:19 | US ---
EXAMINATION TYPE: US renals and bladder DATE OF EXAM: 05/04/2021 COMPARISON: Same day KUB CLINICAL HISTORY: uti, back pain, hx of kidney stones. Pt states left flank pain EXAM MEASUREMENTS: Right Kidney: 11.3 x 4.3 x 5.1 cm Left Kidney: 11.2 x 5.4 x 5.3 cm Right Kidney: Appeared wnl, lower pole gassed out Left Kidney: Appeared wnl Bladder: wnl Bilateral Jets seen: No Incidental finding of gallstone within gallbladder IMPRESSION: No bilateral hydronephrosis. Incidental cholelithiasis.
[2021-05-04 20:23] VITALS: RESP 18
[2021-05-04 20:24] VITALS: BP 109/75; PULSE 95; TEMP 98.9
== END 2021-05-04 20:19 | disposition home or self-care (01) ==
LOC: EC 16:42
DX: N20.0 Calculus of kidney (principal); R21 Rash and other nonspecific skin eruption; J45.909 Unspecified asthma, uncomplicated; Z88.1 Allergy status to other antibiotic agents; Z88.2 Allergy status to sulfonamides; Z91.018 Allergy to other foods
CPT/HCPCS: 36415; 80053; 83605; 85025; 81001; 81025; 74018; 76770; 99284; 96374; 96375; 96361; J1200; J1885

== ENCOUNTER → 2021-06-06 | Outpatient (CLI) | payer MEDICAID | END | disposition home or self-care (01) | LOC: LABMAIN 12:54 | PROVIDERS: ATTEND Emergency Medicine | DX: U07.1 COVID-19 (principal) | CPT/HCPCS: 36415; 86769 ==

== ENCOUNTER → 2021-09-10 | Outpatient (CLI) | payer MEDICAID, OTHER | END | disposition home or self-care (01) | LOC: LABWHC1 14:58 | PROVIDERS: ATTEND Emergency Medicine | DX: Z20.822 Contact with and (suspected) exposure to COVID-19 (principal) | CPT/HCPCS: 87635 ==

== ENCOUNTER → 2021-09-12 | Outpatient (CLI) | payer MEDICAID, OTHER | END | disposition home or self-care (01) | LOC: LABWHC1 08:22 | PROVIDERS: ATTEND Emergency Medicine | DX: Z20.822 Contact with and (suspected) exposure to COVID-19 (principal) | CPT/HCPCS: 87635 ==

== ENCOUNTER → 2021-12-27 | Outpatient (CLI) | payer MEDICAID | END | disposition home or self-care (01) | LOC: LABMAIN 12:25 | PROVIDERS: ATTEND Obstetrics & Gynecology | DX: Z53.9 Procedure and treatment not carried out, unspecified reason (principal) ==

== ENCOUNTER → 2022-01-01 | Outpatient (CLI) | payer MEDICAID ==
[2022-01-01 08:44] LABS: Basophils # (A) 0.1 k/uL (0-0.2); Basophils % (A) 1 %; Eosinophils # (A) 0.4 k/uL (0-0.7); Eosinophils % (A) 3 %; HCT 41.6 % (34.0-46.0); HGB 13.5 gm/dL (11.4-16.0); Lymphocytes # (A) 2.6 k/uL (1.0-4.8); Lymphocytes % (A) 18 %; MCH 29.5 pg (25.0-35.0); MCHC 32.5 g/dL (31.0-37.0); MCV 90.8 fL (80.0-100.0); Mean Platelet Volume 7.7; Monocytes # (A) 0.5 k/uL (0-1.0); Monocytes % (A) 4 %; Neutrophils # (A) 10.2 k/uL (1.3-7.7); Neutrophils % (A) 74 %; Platelet Count 347 k/uL (150-450); RBC 4.58 m/uL (3.80-5.40); RDW 12.6 % (11.5-15.5); WBC 13.8 k/uL (3.8-10.6)
== END | disposition home or self-care (01) ==
LOC: LABMAIN 08:22
PROVIDERS: ATTEND Obstetrics & Gynecology
DX: Z00.00 Encounter for general adult medical examination without abnormal findings (principal)
CPT/HCPCS: 85025

== ENCOUNTER 2023-11-08 11:38 | Emergency (ER) | payer MEDICAID ==
[2023-11-08 12:10] VITALS: BP 147/77; PULSE 80; RESP 18; TEMP 98
[2023-11-08] MEDS: SODIUM CHLORIDE 0.9% 1,000 ML IV STA (12:10)
[2023-11-08] MEDS: ONDANSETRON 4 MG/2 ML VIAL IVP STA (12:10)
[2023-11-08] MEDS: SODIUM CHLORIDE 0.9% 500 ML 500 ML IV STA (12:10)
[2023-11-08] MEDS: KETOROLAC 15 MG/ML 1 ML VIAL IVP STA (12:10)
[2023-11-08 12:26] LABS: Appearance,Urine Clear (Clear); Basophils # (A) 0.1 k/uL (0-0.2); Basophils % (A) 1 %; Bilirubin,Urine Negative (Negative); Blood,Urine Moderate (Negative); Color,Urine Yellow; Eosinophils # (A) 0.1 k/uL (0-0.7); Eosinophils % (A) 2 %; Glucose,Urine (UA) Negative (Negative); HCT 37.7 % (34.0-46.0); HGB 12.4 gm/dL (11.4-16.0); Ketones,Urine Negative (Negative); Leukocyte Esterase,Urine Trace (Negative); Lymphocytes # (A) 2.4 k/uL (1.0-4.8); Lymphocytes % (A) 30 %; MCH 29.6 pg (25.0-35.0); MCHC 32.9 g/dL (31.0-37.0); Mean Platelet Volume 8.6; Monocytes # (A) 0.4 k/uL (0-1.0); Monocytes % (A) 5 %; Mucus,Urine Few /hpf; Neutrophils # (A) 4.9 k/uL (1.3-7.7); Neutrophils % (A) 61 %; Nitrite,Urine Negative (Negative); PH, Urine 5.5 (5.0-8.0); Platelet Count 252 k/uL (150-450); Protein,Urine Negative (Negative); RBC 4.19 m/uL (3.80-5.40); RBC,Urine 1 /hpf (0-5); RDW 12.7 % (11.5-15.5); Specific Gravity,Urine 1.027 (1.001-1.035); Squamous Epithelial Cell,Urine 3 /hpf (0-4); Urobilinogen,Urine <2.0 mg/dL (<2.0); WBC,Urine 4 /hpf (0-5)
--- NOTE | 2023-11-08 12:43 | ED ---
Abdominal Pain HPI - General Chief Complaint: Abdominal Pain Stated Complaint: Kidney Stone Time Seen by Provider: 11/08/23 11:43 Source: patient, RN notes reviewed Mode of arrival: ambulatory Limitations: no limitations - History of Present Illness Initial Comments: Six 43-year-old female presents emergency department complaint of right-sided abdominal pain, right flank pain. Patient states has been waxing waning states that she has a history of kidney stone pain feels very similar in nature. Patient states that nothing really makes the pain feel better at this time. Patient states she has been on Flomax, took some Toradol. Patient denies any reports of fever, chills she does admit to some nausea and vomiting symptoms. - Related Data Home Medications Medication Instructions Recorded Confirmed Albuterol Sulfate [Albuterol 2 puff INHALATION RT-Q6H PRN 09/12/20 12/31/21 Sulfate Hfa] Fluticasone Propion/Salmeterol 1 puff INHALATION RT-BID 09/12/20 12/31/21 [Advair 250-50 Diskus] Cetirizine HCl [Zyrtec] 10 mg PO HS 12/31/21 Cholecalciferol [Vitamin D3 (125 125 mcg PO DAILY 12/31/21 Mcg = 5000 Iu)] Mupirocin 2% Oint [Bactroban 2% 1 applic TOPICAL BID 12/31/21 Oint] Pimecrolimus 1 applic TOPICAL BID 12/31/21 Sertraline [Zoloft] 50 mg PO HS 12/31/21 Vitamin B Complex 1 each PO DAILY 12/31/21 Allergies Allergy/AdvReac Type Severity Reaction Status Date / Time cephalexin monohydrate Allergy Rash/Hives Verified 11/08/23 11:46 [From Keflex] cinnamon Allergy Wheezing Verified 11/08/23 11:46 sulfamethoxazole Allergy Rash/Hives Verified 11/08/23 11:46 [From Bactrim] tree nut Allergy Swelling Verified 11/08/23 11:46 trimethoprim [From Bactrim] Allergy Rash/Hives Verified 11/08/23 11:46 Review of Systems ROS Statement: Those systems with pertinent positive or pertinent negative responses have been documented in the HPI. ROS Other: All systems not noted in ROS Statement are negative. Past Medical History Past Medical History: Asthma, Skin Disorder, Thyroid Disorder Additional Past Medical History / Comment(s): eczema, kidney stones History of Any Multi-Drug Resistant Organisms: None Reported Past Surgical History: Orthopedic Surgery Additional Past Surgical History / Comment(s): D & C. Past Anesthesia/Blood Transfusion Reactions: Postoperative Nausea & Vomiting (PONV) Past Psychological History: No Psychological Hx Reported Smoking Status: Never smoker Past Alcohol Use History: Occasional Past Drug Use History: None Reported - Past Family History Father Family Medical History: Coronary Artery Disease (CAD) Additional Family Medical History / Comment(s): kidney stones, pace maker. Mother Family Medical History: No Reported History Additional Family Medical History / Comment(s): UTIs. General Exam Limitations: no limitations General appearance: alert, in no apparent distress Head exam: Present: atraumatic, normocephalic, normal inspection Eye exam: Present: normal appearance, PERRL, EOMI. Absent: scleral icterus, conjunctival injection, periorbital swelling ENT exam: Present: normal exam, normal oropharynx, mucous membranes moist Neck exam: Present: normal inspection, full ROM. Absent: tenderness, meningismus, lymphadenopathy Respiratory exam: Present: normal lung sounds bilaterally. Absent: respiratory distress, wheezes, rales, rhonchi, stridor Cardiovascular Exam: Present: regular rate, normal rhythm, normal heart sounds. Absent: systolic murmur, diastolic murmur, rubs, gallop, clicks GI/Abdominal exam: Present: soft, tenderness, normal bowel sounds. Absent: distended, guarding, rebound, rigid Back exam: Present: CVA tenderness (R). Absent: CVA tenderness (L) Neurological exam: Present: alert Course Vital Signs 11/08/23 11:45 Temperature 98 F Pulse Rate 80 Respiratory 18 Rate Blood Pressure 147/77 O2 Sat by Pulse 98 Oximetry Medical Decision Making - Medical Decision Making Was pt. sent in by a medical professional or institution (, PA, SPORTS CLERK, urgent care, hospital, or usp...) When possible be specific @ -No Did you speak to anyone other than the patient for history (EMS, parent, family, police, friend...)? What history was obtained from this source @ -No Did you review nursing and triage notes (agree or disagree)? Why? @ -I reviewed and agree with nursing and triage notes Were old charts reviewed (outside hosp., previous admission, EMS record, old EKG, old radiological studies, urgent care reports/EKG's, usp records)? Report findings @ -[Reviewed prior laboratory studies and CT. Differential Diagnosis (chest pain, altered mental status, abdominal pain women, abdominal pain men, vaginal bleeding, weakness, fever, dyspnea, syncope, headache, dizziness, GI bleed, back pain, seizure, CVA, palpatations, mental health, musculoskeletal)? @ -Differential Abdominal Pain Women: Appendicitis, Cholecystitis, diverticulosis, ischemic bowel, pancreatitis, hepatitis, UTI, gastroenteritis, AAA, incarcerated hernia, bowel obstruction, constipation, inflammatory bowel, hepatitis, peptic ulcer disease, splenic infarction, perforated viscus, vulvitis, ovarian torsion, PID, kidney stone, placenta abruption, this is not meant to be an all-inclusive list EKG interpreted by me (3pts min.). @ -[None X-rays interpreted by me (1pt min.). @ -[None done CT interpreted by me (1pt min.). @ -CT abdomen pelvis showing moderate stool collection in the right side, no evidence of kidney stone, hydroureter or hydronephrosis U/S interpreted by me (1pt. min.). @ -None done What testing was considered but not performed or refused? (CT, X-rays, U/S, labs)? Why? @ -None What meds were considered but not given or refused? Why? @ -None Did you discuss the management of the patient with other professionals (professionals i.e. , PA, SPORTS CLERK, lab, RT, psych nurse, social work supervisor, repeat photocomposing machine operator, teacher, public records officer, shoe parts caser)? Give summary @ -No Was smoking cessation discussed for >3mins.? @ -No Was critical care preformed (if so, how long)? @ -No Were there social determinants of health that impacted care today? How? (Homelessness, low income, unemployed, alcoholism, drug addiction, transportation, low edu. Level, literacy, decrease access to med. care, senior living, rehab)? @ -No Was there de-escalation of care discussed even if they declined (Discuss DNR or withdrawal of care, Hospice)? DNR status @ -No What co-morbidities impacted this encounter? (DM, HTN, Smoking, COPD, CAD, Cancer, CVA, ARF, Chemo, Hep., AIDS, mental health diagnosis, sleep apnea, morbid obesity)? @ -None Was patient admitted / discharged? Hospital course, mention meds given and route, prescriptions, significant lab abnormalities, going to OR and other pertinent info. @ -[Discharge patient presented for right flank pain abdominal pain no acute findings other than constipation on CT. Patient was discharged to follow-up with PCP urology. As she has a history of kidney stones and pain symptoms are persistent and similar Undiagnosed new problem with uncertain prognosis? @ -No Drug Therapy requiring intensive monitoring for toxicity (Heparin, Nitro, Insulin, Cardizem)? @ -No Were any procedures done? @ -No Diagnosis/symptom? @ -[Abdominal pain, flank pain Acute, or Chronic, or Acute on Chronic? @ -Acute Uncomplicated (without systemic symptoms) or Complicated (systemic symptoms)? @ -Uncomplicated Side effects of treatment? @ -No Exacerbation, Progression, or Severe Exacerbation? @ -No Poses a threat to life or bodily function? How? (Chest pain, USA, MD, pneumonia, PE, COPD, DKA, ARF, appy, cholecystitis, CVA, Diverticulitis, Homicidal, Suicidal, threat to staff... and all critical care pts) @ -No - Lab Data Result diagrams: 11/08/23 11:57 11/08/23 11:57 Lab Results 11/08/23 11/08/23 11/08/23 Range/Units 11:57 11:57 11:57 WBC 8.0 (3.8-10.6) k/uL RBC 4.19 (3.80-5.40) m/uL Hgb 12.4 (11.4-16.0) gm/dL Hct 37.7 (34.0-46.0) % MCV 90.0 (80.0-100.0) fL MCH 29.6 (25.0-35.0) pg MCHC 32.9 (31.0-37.0) g/dL RDW 12.7 (11.5-15.5) % Plt Count 252 (150-450) k/uL MPV 8.6 Neutrophils % 61 % Lymphocytes % 30 % Monocytes % 5 % Eosinophils % 2 % Basophils % 1 % Neutrophils # 4.9 (1.3-7.7) k/uL Lymphocytes # 2.4 (1.0-4.8) k/uL Monocytes # 0.4 (0-1.0) k/uL Eosinophils # 0.1 (0-0.7) k/uL Basophils # 0.1 (0-0.2) k/uL Sodium 138 (137-145) mmol/L Potassium 4.0 (3.5-5.1) mmol/L Chloride 105 (98-107) mmol/L Carbon Dioxide 28 (22-30) mmol/L Anion Gap 5 mmol/L BUN 17 (7-17) mg/dL Creatinine 0.69 (0.52-1.04) mg/dL Est GFR (CKD-EPI)AfAm >90 (>60 ml/min/1.73 sqM) Est GFR (CKD-EPI)NonAf >90 (>60 ml/min/1.73 sqM) Glucose 94 (74-99) mg/dL Calcium 9.8 (8.4-10.2) mg/dL Total Bilirubin 0.3 (0.2-1.3) mg/dL AST 28 (14-36) U/L ALT 25 (4-34) U/L Alkaline Phosphatase 69 (38-126) U/L Total Protein 6.6 (6.3-8.2) g/dL Albumin 4.1 (3.5-5.0) g/dL Urine Color Yellow Urine Appearance Clear (Clear) Urine pH 5.5 (5.0-8.0) Ur Specific [place] 1.027 (1.001-1.035) Urine Protein Negative (Negative) Urine Glucose (UA) Negative (Negative) Urine Ketones Negative (Negative) Urine Blood Moderate H (Negative) Urine Nitrite Negative (Negative) Urine Bilirubin Negative (Negative) Urine Urobilinogen <2.0 (<2.0) mg/dL Ur Leukocyte Esterase Trace H (Negative) Urine RBC 1 (0-5) /hpf Urine WBC 4 (0-5) /hpf Ur Squamous Epith Cells 3 (0-4) /hpf Urine Mucus Few H (None) /hpf Disposition Clinical Impression: Right flank pain, Abdominal pain Disposition: HOME SELF-CARE Condition: Stable Instructions (If sedation given, give patient instructions): Abdominal Pain (ED) Additional Instructions: Please return to the Emergency Department if symptoms worsen or any other concerns. Is patient prescribed a controlled substance at d/c from ED?: No Referrals: Jose Alfredo Campos MD [Primary Care Provider] - 1-2 days Fred Daugherty MD [STAFF PHYSICIAN] - 1-2 days Time of Disposition: 12:59
--- NOTE | 2023-11-08 12:44 | CT ---
EXAMINATION TYPE: CT abdomen pelvis wo con CT DLP: 864 mGycm, Automated exposure control for dose reduction was used. DATE OF EXAM: 11/08/2023 12:26 PM COMPARISON: CT abdomen pelvis most recent from CLINICAL INDICATION:Female, 43 years old with history of right flank pain; RT flank pain, hx renal st ones TECHNIQUE: Axial CT abdomen pelvis wo con;Sagittal and coronal reformats were created on a separate workstation. Contrast used: mL of , (none if empty) Oral contrast used: without Oral Contrast (none if empty) FINDINGS: LOWER CHEST: Unremarkable ABDOMEN LIVER: Unremarkable GALLBLADDER AND BILE DUCTS: The gallbladder is nondistended. No evidence for cholelithiasis. PANCREAS: Unremarkable. SPLEEN: Unremarkable. ADRENAL GLANDS: Unremarkable. KIDNEYS AND URETERS: No evidence of hydronephrosis or renal calculus. The ureters are unremarkable. PELVIS BLADDER: Unremarkable REPRODUCTIVE: Unremarkable. ABDOMEN & PELVIS STOMACH AND BOWEL: No evidence of bowel obstruction. Moderate to large amount stool throughout the ri ght colon. PERITONEUM/RETROPERITONEUM: No evidence of pneumoperitoneum or free fluid. VASCULATURE: No evidence of aortic aneurysm. MUSCULOSKELETAL: No acute osseous abnormalities LYMPH NODES: No gross evidence for lymphadenopathy. SOFT TISSUE/ABDOMINAL WALL: Fat-containing umbilical hernia. IMPRESSION: No evidence for obstructive uropathy or calculus. The appendix is normal. No definitive acute right l ower quadrant process. There is a moderate to large stool in the right colon.
[2023-11-08 12:50] LABS: ALT 25 U/L (4-34); AST 28 U/L (14-36); African American GFR (CKD) >90 (>60 ml/min/1.73 sqM); Albumin 4.1 g/dL (3.5-5.0); Alkaline Phosphatase 69 U/L (38-126); Anion Gap 5 mmol/L; Blood Urea Nitrogen 17 mg/dL (7-17); Calcium 9.8 mg/dL (8.4-10.2); Carbon Dioxide 28 mmol/L (22-30); Chloride 105 mmol/L (98-107); Glucose 94 mg/dL (74-99); Non-African American GFR(CKD) >90 (>60 ml/min/1.73 sqM); Sodium 138 mmol/L (137-145); Total Bilirubin 0.3 mg/dL (0.2-1.3); Total Protein 6.6 g/dL (6.3-8.2)
== END 2023-11-08 13:07 | disposition home or self-care (01) ==
LOC: EC 11:38
DX: R10.9 Unspecified abdominal pain (principal); J45.909 Unspecified asthma, uncomplicated; Z79.51 Long term (current) use of inhaled steroids; Z88.1 Allergy status to other antibiotic agents; Z88.2 Allergy status to sulfonamides; Z91.018 Allergy to other foods; Z91.010 Allergy to peanuts
CPT/HCPCS: 36415; 80053; 85025; 81001; 74176; 99284; 96374; 96375; 96361; J2405; J1885

== ENCOUNTER → 2024-02-29 | Outpatient (CLI) | payer MEDICAID ==
[2024-02-29 07:53] VITALS: BP 136/86; PULSE 67; RESP 16; TEMP 97.3
--- NOTE | 2024-02-29 14:40 | P.PAINPG ---
PQRS Measure Charge Sheet Comment: HISTORY OF PRESENT ILLNESS: A 44 yr old female as a referral from [facility] presents today w severe and chronic neck pain > 3 mo secondary to DDD, spondylosis and facet arthropathy without myelopathy for evaluation. Pt states pain level is provoked at 6 /10 in intensity, constant, localized in the cervical spine, predominantly axial, sore in character w occasional shooting pain towards the BUEs. Pain is provoked by hyperextension. Pain is alleviated by PT x 6 wks yrs ago, physician guided home exercises/ stretches 5 times weekly since Fall 2021. heat, ice, medications (Flexeril, Ibu), Aspercreme topical, repositioning and rest . Cervical disability score at 17. PMH: OA, Asthma, Eczema, Hypothyroid Disorder, Nephrolithiasis PSH: Orthopedic Surgery, D &C SH: Never smoker, Occasional ETOH use, No illicit drug use FH: Fa- CAD, Mo- No Reported History All: See list Meds: See list REVIEW OF ORGAN SYSTEMS: CONSTITUTIONAL: No fevers or chills. No recent weight loss. NEUROLOGICAL: + numbness and tingling along the distal extremities. No seizure disorders or headaches. MUSCULOSKELETAL: + pain PSYCHIATRIC: Denies current depression or suicidal thoughts. Physical Examinations : Constitutional : Cooperative , not in acute distress . Neurologic : Cranial nerve II to XII intact. No focal neurological deficits. Psychiatric : alert & oriented x 3. Matching mood & appropriate affect. Judgment & insight intact. Musculoskeletal : Cervical Spine Motor strength in the deltoid and biceps: Normal right side. Normal Left side Motor strength biceps and the wrist extensors: Normal right side . Normal left side Motor strength in the triceps muscle: Normal right side. Normal left side Deep tendon reflexes: Normal at the biceps. Normal at Brachioradialis. Normal at triceps Vertebral body tenderness to deep palpation over C6 Cervical facet loading test: positive bilaterally Spurling test: positive BL C6-C7 Neck distraction test: positive bilaterally George sign: positive bilaterally Lumbar spine Motor strength lower extremities ,thigh and legs 5/5 Right side , 5/5 Left side Deep tendon reflexes : Normal Knee Jerk. Normal Ankle Jerk Vertebral body tenderness over Frias Test positive Lumbar facet Loading Test: positive Right / positive Left Range of motion of the lumbar spine Flexion 30 degrees, extension 10 degrees Straight Leg Raise test: Left/ Right positive at degrees Hawa test: positive right / positive left. Severe tenderness over the Sacroiliac joint on the Right / Left sides Gaenslen test: positive bilaterally Seated flexion test: positive bilaterally. Sacral spine : Severe tenderness over the Sacroiliac joint: right side / left side Range of motion: Flexion of the lumbar spine <60 degrees Range of motion: Extension of the lumbar spine <20 degrees Gaenslen's Test positive Hawa test: positive right side / left side Thigh Thrust Test Sacral Thrust Test Imaging: MRI non contrast of the cervical spine from 11/02/23 reviewed Assessment/ Plan : Cervical DDD Recommendation of ARNOL C6-C7 #1. May need a series of injections for optimal pain relief. Risks, benefits of procedure discussed and patient verbalized understanding. Admits to anti- coagulant use or medical history of diabetes. Protocol for discontinuation/ continuation of medications hernandez procedure discussed. All questions answered. I have spent greater than 30 minutes on patient care today. Dr Gould was available by phone for the evaluation of this patient. The time was used to review the medical records including relevant urine studies and Prescription history (MAPs), review of the available imaging, evaluation and examination of the patient, coordination of care with the medical staff and if applicable referring physicians, as well as creation of the medical record - Pain Location Bilateral Lower Neck Non-Pharmacological Interventions: Heat, Ice, Inactivity, Physical Therapy, Position/Reposition, Stretching Pharmacological Interventions: PRN Medication, Topical Medication PQRS Narrative: Smoking Status Never smoker Home Medications: Ambulatory Orders Albuterol Sulfate [Albuterol Sulfate Hfa] 2 puff INHALATION RT-Q6H PRN 09/12/20 Fluticasone Propion/Salmeterol [Advair 250-50 Diskus] 1 puff INHALATION RT-BID 09/12/20 Cetirizine HCl [Zyrtec] 10 mg PO HS 12/31/21 Cholecalciferol [Vitamin D3 (125 Mcg = 5000 Iu)] 125 mcg PO DAILY 12/31/21 Mupirocin 2% Oint [Bactroban 2% Oint] 1 applic TOPICAL BID 12/31/21 Pimecrolimus 1 applic TOPICAL BID 12/31/21 Sertraline [Zoloft] 50 mg PO HS 12/31/21 Vitamin B Complex 1 each PO DAILY 12/31/21 Controlled Substance Measures - Controlled Substance Measures Is patient prescribed a controlled substance at discharge?: No
== END ==
LOC: PNWHC3 07:19
PROVIDERS: ATTEND Specialist
DX: M47.22 Other spondylosis with radiculopathy, cervical region (principal); M50.123 Cervical disc disorder at C6-C7 level with radiculopathy; Z88.1 Allergy status to other antibiotic agents; Z88.2 Allergy status to sulfonamides; Z91.018 Allergy to other foods
CPT/HCPCS: 99202